=== PATIENT | female | born 1950 | race Caucasian/White ===

== ENCOUNTER 2020-05-12 19:55 | Outpatient (REF) | payer MEDICARE, OTHER, SELFPAY ==
[2020-05-12 20:52] LABS: Abs Immature Grans 0.01 10^3/uL (0.0-0.06); Absolute Basophil Count 0.04 10^3/uL (0.0-0.2); Absolute Eosinophil Count 0.11 10^3/uL (0.0-0.7); Absolute Lymphocyte Count 1.92 10^3/uL (1.2-3.4); Absolute Neutrophil Count 3.13 10^3/uL (1.2-6.7); Basophils % 0.7; Eosinophils % 1.9; HCT 39.8 % (36.0-46.0); HGB 13.4 g/dL (11.2-15.7); Immature Grans % 0.2; MCH 29.9 pg (27.0-33.0); MCHC 33.7 % (32.0-36.0); MCV 88.8 fL (80-95); Monocytes % 10.3; Neutrophils % 53.9; Nucleated RBC 0 %; Platelet Count 266 10^3/uL (130-400); RBC 4.48 10^6/uL (3.93-5.22); RDW 12.2 % (11.7-14.6); RDW-SD 39.8 fL; WBC 5.81 10^3/uL (4.4-10.8)
[2020-05-12 21:27] LABS: ALT 32 U/L (14-59); AST 22 U/L (15-37); Albumin 3.7 g/dL (3.4-5.0); Alkaline Phosphatase 73 U/L (46-116); Anion Gap 6.2 mmol/L (3-11); BUN 21 mg/dL (7-18); Bilirubin, Total 0.4 mg/dL (0.2-1.0); CO2 27.8 mmol/L (21.0-32.0); Calcium 8.8 mg/dL (8.5-10.1); Calculated LDL 159 mg/dL (<100); Chloride 103 mmol/L (98-107); Cholesterol 259 mg/dL (<200); Estimated GFR 54.66 (mL/min/1.73m2); Glucose 93 mg/dL (74-106); HDL Cholesterol 82 mg/dL (40-60); Potassium 4.2 mmol/L (3.5-5.1); Sodium 137 mmol/L (136-145); TSH (W/Ref FT4) 1.25 uIU/mL (0.36-3.74); Total Protein 6.8 g/dL (6.4-8.2); Triglyceride 92 mg/dL (<150)
== END 2020-05-12 20:15 ==
LOC: NCHCN 19:55
PROVIDERS: PCP Nurse Practitioner Family; Visit Provider Family Medicine
DX: R03.0 Elevated blood-pressure reading, without diagnosis of hypertension (principal)
CPT/HCPCS: 80053; 80061; 84443; 85025

== ENCOUNTER 2021-03-01 10:30 | Outpatient (REF) | payer MEDICARE, OTHER, SELFPAY ==
[2021-03-01 21:22] LABS: Abs Immature Grans 0.01 10^3/uL (0.0-0.06); Absolute Basophil Count 0.04 10^3/uL (0.0-0.2); Absolute Eosinophil Count 0.13 10^3/uL (0.0-0.7); Absolute Lymphocyte Count 1.83 10^3/uL (1.2-3.4); Absolute Monocyte Count 0.54 10^3/uL (0.1-0.8); Absolute Neutrophil Count 2.69 10^3/uL (1.2-6.7); Basophils % 0.8; Eosinophils % 2.5; HCT 41.4 % (36.0-46.0); HGB 13.7 g/dL (11.2-15.7); Immature Grans % 0.2; Lymphocytes % 34.9; MCH 30.9 pg (27.0-33.0); MCHC 33.1 % (32.0-36.0); MCV 93.5 fL (80-95); MPV 8.8 fL (8.0-11.0); Monocytes % 10.3; Neutrophils % 51.3; Nucleated RBC 0 %; Platelet Count 293 10^3/uL (130-400); RBC 4.43 10^6/uL (3.93-5.22); RDW 12.2 % (11.7-14.6); RDW-SD 42.4 fL; WBC 5.24 10^3/uL (4.4-10.8)
[2021-03-01 21:26] LABS: ESR 18 mm/hr (0-30)
[2021-03-01 22:49] LABS: Anion Gap 6.7 mmol/L (3-11); BUN 16 mg/dL (7-18); C-Reactive Protein 0.28 mg/dL (0.0-0.3); CO2 30.3 mmol/L (21.0-32.0); Chloride 102 mmol/L (98-107); Estimated GFR 54.66 (mL/min/1.73m2); Glucose 103 mg/dL (74-106); Potassium 4.1 mmol/L (3.5-5.1); Sodium 139 mmol/L (136-145); TSH (W/Ref FT4) 1.06 uIU/mL (0.36-3.74)
[2021-03-02 17:03] LABS: Rheumatoid Factor <8.6 IU/mL (<12.0)
[2021-03-03 19:32] LABS: Anaplasma phagocytophilum Negative (Negative); B. miyamotoi PCR Negative (Negative); Babesia divergens/MO-1 Negative (Negative); Babesia duncani Negative (Negative); Babesia microti Negative (Negative); Ehrlichia chaffeensis Negative (Negative); Ehrlichia ewingii/canis Negative (Negative); Ehrlichia muris eauclairensis Negative (Negative)
[2021-03-04 10:17] LABS: Cyclic Citrullinated Peptide <2.5 U/mL (<5.0)
[2021-03-05 10:56] LABS: Lyme Ab w Rflx to Lyme Confirm Negative (Negative)
[2021-03-05 13:56] LABS: ANA Interpretation Negative (Negative)
== END 2021-03-01 10:31 | disposition home or self-care (01) ==
LOC: NCHCN 10:30
PROVIDERS: PCP Nurse Practitioner Family; Visit Provider Nurse Practitioner Family
DX: M25.59 Pain in other specified joint (principal)
CPT/HCPCS: 80048; 85652; 86200; 87798; 84443; 85025; 86038; 86140; 86431; 86618

== ENCOUNTER 2022-05-21 09:18 | Outpatient (CLI) | payer MEDICARE, OTHER, SELFPAY ==
--- NOTE | 2022-05-21 09:15 | DI.RAD_ITS ---
Exam(s) XR SHOULDER LT COMPLETE 2+V EXAM: XR SHOULDER LT COMPLETE 2+V CLINICAL HISTORY: shoulder pain. TECHNIQUE: 2D digital imaging was performed of the left shoulder. Two images were obtained. AP and axillary views were obtained. COMPARISON: No exams were available for comparison FINDINGS: BONES: No acute fracture is present. No bony destructive lesion is seen. JOINTS: No dislocation present. There are mild degenerative changes seen at the acromioclavicular román nt. SOFT TISSUE: Normal. IMPRESSION: Mild DJD of the AC joint. DATA REPOSITORY: RADIATION DOSE DELIVERED:
== END 2022-05-21 09:19 | disposition home or self-care (01) ==
LOC: DIORS 09:19
PROVIDERS: PCP Family Medicine; Referring Provider Family Medicine; Visit Provider Student in an Organized Health Care Education/Training Program
DX: M75.102 Unspecified rotator cuff tear or rupture of left shoulder, not specified as traumatic (principal)
CPT/HCPCS: 99203; 73030

== ENCOUNTER 2022-08-30 01:12 | Outpatient (CLI) | payer MEDICARE, OTHER, SELFPAY ==
--- NOTE | 2022-08-30 07:30 | DI.MRI_ITS ---
Exam(s) MR UPPER JOINT LT WO EXAM: MR UPPER JOINT LT WO CLINICAL HISTORY: L SHOULDER INJURY,LT ROTATOR CUFF TEAR,M75.102. TECHNIQUE: Multiplanar multisequence MRI was performed. COMPARISON: CR XR SHOULDER LT COMPLETE 2+V from 05/21/2022 FINDINGS: BONES: There is no fracture or contusion pattern. JOINTS: Mild degenerative changes are seen at the acromioclavicular joint. The glenohumeral joint is normal. TENDONS: Supraspinatus: There is a complete tear of the supraspinatus tendon with retraction almost to the lev el of the glenohumeral joint. Infraspinatus: Unremarkable. Subscapularis: There is tendinosis of the subscapularis tendon. [place]: Unremarkable. Biceps and [place]: Unremarkable. MUSCLES: Unremarkable. GLENOID LABRUM: Unremarkable on this noncontrast examination. SOFT TISSUES: Unremarkable. LIGAMENTS: Unremarkable. OTHER: There is fluid seen in the subacromial subdeltoid bursa. IMPRESSION: 1. Complete tear of the supraspinatus tendon with retraction to almost to the level of the acromiocla vicular joint. 2. Degenerative changes of the acromioclavicular joint. 3. Subscapularis tendinosis. 4. Fluid seen in the subacromial subdeltoid bursa. DATA REPOSITORY:
== END 2022-08-30 01:32 ==
LOC: DI 01:13
PROVIDERS: PCP Family Medicine; Visit Provider Student in an Organized Health Care Education/Training Program
DX: M25.512 Pain in left shoulder (principal); M75.102 Unspecified rotator cuff tear or rupture of left shoulder, not specified as traumatic; M75.82 Other shoulder lesions, left shoulder; M25.412 Effusion, left shoulder
CPT/HCPCS: 73221

== ENCOUNTER → 2022-09-04 13:29 | Outpatient (BNVA) | payer MEDICARE, OTHER, SELFPAY | PROVIDERS: PCP Family Medicine; Referring Provider Family Medicine; Visit Provider Student in an Organized Health Care Education/Training Program | DX: M75.102 Unspecified rotator cuff tear or rupture of left shoulder, not specified as traumatic (principal) | CPT/HCPCS: 99214 ==

== ENCOUNTER 2022-09-26 06:17 | Day surgery (SDC) | payer MEDICARE, OTHER, SELFPAY ==
--- NOTE | 2022-09-25 16:11 | ANES.PREOP_ITS ---
General Info Date of Service Date Performed: 09/26/22 Height: 5 ft 6 in Weight: 61.235 kg Body Mass Index (BMI): 21.7 Surgical Procedure: Operation Date: 09/26/22 07:40 Proposed Procedure Side Surgeon p Shoulder Rotator Cuff Arthroscopic w/Extensive Debridement, Biceps Tenodesis, Subacromial Decompression Left Silvio Chairez MD Meds Allergies and Home Medications Allergies Allergy/AdvReac Type Severity Reaction Status Date / Time hydrocodone bitartrate AdvReac Intermediate N/V, MAKE Unverified 09/26/22 06:30 [From Vicodin] ME CRAZY oxycodone HCl [From Percocet] AdvReac Intermediate N//V, Unverified 09/26/22 06:30 MAKE ME CRAZY NARCOTICS AdvReac Intermediate MAKE ME Uncoded 09/26/22 06:30 CRAZY AND N/V Home Medication Medication Instructions Recorded calcium carb,citrat 500 1 tab PO DAILY 10/24/14 mg-magnesium #12 250 mg-vit D3 200 unit tablet (Calcium Magnesium + D) omega-3 fatty acids-fish oil 684 1 cap PO DAILY 10/24/14 mg-1,200 mg capsule,delayed release (One-Per-Day [place]-3) lisinopril 20 1 tab PO DAILY 05/21/22 mg-hydrochlorothiazide 25 mg tablet [facility], [facility] Active Problems Active Problems: Problem Status Onset Code Left rotator cuff tear M75.102 Medical History Medical History HTN (hypertension) Medical History Comments:: Pt. was told after lumpectomy that she shouldnt have BP on right side, pt. denies any lympadema Surgical History Surgical History History of total knee replacement Hx of lumpectomy Tobacco Smoking/Tobacco Use Status: Never Alcohol Alcohol Intake: former Substance Use Substance use: Never Substance use type: does not use Vital Signs and Lab Results Vital Signs Most Recent Vital Signs in EMR: Temp Pulse Resp BP Pulse Ox 36.4 C L 64 16 137/86 97 09/26/22 06:41 09/26/22 06:41 09/26/22 06:41 09/26/22 06:41 09/26/22 06:41 Lab Results Blood Type / Crossmatch: No Data to Display Complete Blood Count: No Data to Display Complete Metabolic Panel: No Data to Display Liver Function Panel: No Data to Display Coagulation Panel: No Data to Display Cardiac Panel: No Data to Display Arterial Blood Gas: No Data to Display Venous Blood Gas: No Data to Display Pancreas Panel: No Data to Display Thyroid Panel: No Data to Display Infectious Disease: No Data to Display Blood Cultures: No Data to Display Toxicology Panel: No Data to Display Anesthesia Assessment and Plan Anesthesia History Personal History: No History of Anesthesia Complications Family History: No Family History of Anesthesia Complications Exercise Tolerance Exercise Tolerance: Metabolic Equivalents>4 Cardiac & Pulmonary Exam Cardiac Exam: Normal S1/S2 Heart Sounds Pulmonary Exam: Clear Bilateral Breath Sounds Implantable Cardiac Device Does patient have a Pacemaker or an ICD?: No Airway Exam Known Difficult Airway: No Mallampati Class: 2 Mouth Opening: Normal (> 3cm) Thyromental Distance: Greater than 3 cm Neck Range of Motion: Full ROM Neck Circumference: Normal Teeth Condition: Normal Dentition ASA Classification ASA Score: ASA 2 Emergency Case?: No NPO Status NPO Status: NPO Clears >2 hours, Solids >8 hours Anesthesia Plan Resuscitation Status: Full Code Anesthesia Technique: General Anesthesia Airway Planned: Endotracheal Tube Pain Management: Surgeon and patient request nerve block Monitors Used: Standard Monitors Preoperative Comments:: 72 yo female with rotator cuff tear for shoulder scope. Sig PMHx: HTN (lisinopril/HCTZ - none today), never smoker, former EtOH.
[2022-09-26] VITALS (11 sets, daily range): BP systolic 107–145; BP diastolic 61–86; PULSE 58–64; RESP 14–18; TEMP 36.3–37; O2SAT 95–97; BMI 21.7
[2022-09-26] MEDS: Lactated Ringers 1,000 ML 30 ML IV (07:03)
--- NOTE | 2022-09-26 07:12 | W.ANESNERVE ---
Nerve Block Single Injection Procedure Date and Time Date Performed: 09/26/22 Procedure Start: 07:18 Location Where Procedure Performed Procedure Location: Day Surgery Unit Reason Performed: Postoperative Analgesia Requesting Provider: Silvio Chairez Timeout Performed Timeout Performed: Yes Monitoring Used ECG, Blood Pressure and SpO2 Sterility Sterility: Hand Hygiene, Surgical Cap, Surgical Mask, Sterile Gloves and Chlorhexidine Sedation Given During Procedure Sedation Given (Indicate Dose Given): Versed IV (0.5 mg + 0.5 mg) Dose:: 1 mg Patient Mental Status Patient Mental Status: Sedate with meaningful communication Nerve Block 1st Nerve Block: Laterality: Left Block Type: Interscalene Ultrasound Image Saved?: Yes Needle / Catheter Used: 100mm SonoPlex II Local Anesthetic Bolus (Indicate Dose Given): Lidocaine used for local infiltration of skin, Injected in 3-5ml increments after negative blood aspiration, Bupivacaine 0.5% Dose:: 12 mL and Exparel Dose:: 7 mL Additives (Indicate Dose Given): None Ultrasound: Sterile probe cover and gel used Nerve Stimulator: Supplement to Ultrasound use and No twitch or parasthesia noted < 0.5 mA Paresthesia: None Procedure Tolerated: No Complications Procedure Outcome: Successful Performed By: Aníbal Alegria
--- NOTE | 2022-09-26 07:17 | W.PM.OP ---
Date of service: 09/26/22 Time of Service: 07:30 Operative Note Operative Note DATE OF PROCEDURE: 09/26/22 PRE-OP DIAGNOSIS: Left: 1. Rotator cuff tear 2. SLAP tear 3. Bursitis POST-OP DIAGNOSIS: same PROCEDURE: Left: 1. Rotator cuff repair, CPT# 87681. This involved repair of the supraspinatus using anchors and sutures to reattach the rotator cuff back to the footprint of the greater tuberosity. 2. Arthroscopic biceps tenodesis, CPT# 49563. This involved arthroscopically suturing and reattaching the long head of the biceps tendon to the proximal humerus at the superior margin of the bicipital groove with a screw at the correct tension. 3. Extensive debridement, CPT# 53991. This involved using arthroscopic hand instruments, power instruments, and radiofrequency instruments to release the long head of the biceps tendon and debride areas of labral tearing, SLAP tearing, partial articular infraspinatus tearing, rotator interval synovitis, and chondromalacia about the humeral head working within the glenohumeral joint anteriorly, superiorly and posteriorly. 4. Subacromial decompression with partial acromioplasty, CPT# 88665. This involved using arthroscopic power instruments and a radiofrequency wand to complete a bursectomy and smooth the undersurface of the acromion. The nutrition services assistant was medically required in order to help assist in techniques above, which require positioning the arm, holding the arthroscope, and manipulating multiple instruments and sutures at the same time. This cannot be done without the help of an experienced nutrition services assistant. SURGEON: Silvio Chairez BEATER ENGINEER HELPER: Gisselle Hernandes ANESTHESIA TYPE: General LMA/ETT and Primary Nerve Block Refer to Anesthesia Record ESTIMATED BLOOD LOSS: 10 PATHOLOGY: none sent COMPLICATIONS: None Patient was transported to: PACU Patient's condition: stable Implants: Arthrex: 4.75mm SwiveLocks x 2; 5.5mm SwiveLocks x 2 Indications: The patient was diagnosed with the above conditions and appropriately indicated for surgical intervention. Please see complete medical record for details. Findings: Exam under anesthesia: Full range of motion, no instability Glenohumeral joint: Moderate generalized humeral head chondromalacia and moderate central glenoid chondromalacia. Largely intact subscapularis. Obvious disruption biceps anchor SLAP tear with labral tear continued anteriorly involving the anterior labrum to about the equator. Unstable biceps anchor. Intact articular biceps tendon. Largely intact subscapularis. Mild articular undersurface infraspinatus tearing with minimal footprint involvement. Obvious full-thickness supraspinatus defect. Subacromial space: Significant bursitis. Small soft tissue remnant greater tuberosity laterally with otherwise completely exposed supraspinatus greater tuberosity footprint. Largely intact infraspinatus dorsally. Large U-shaped supraspinatus tear with significant central tendon retraction and defect. Significant central and posterior tendon delamination, fraying, and thickening. Thin anterior tendon remnant. Exposed upper margin bicipital grooves with the tear involving the supraspinatus anteriorly into the transverse humeral ligament across the biceps tendon and stopping without involving the subscapularis. Procedure Description: In the operating room, general anesthesia was induced. Bilateral shoulders were examined. The patient was positioned in the beachchair position. All bony prominences were well-padded. Preoperative antibiotics were administered. The shoulder was prepped and draped in the usual sterile fashion. The correct patient, procedure, and side of the procedure were all verified prior to incision. Starting through the posterior portal a standard complete diagnostic arthroscopy was performed of the glenohumeral joint including inspection of the long head of the biceps, anterior and superior labrum, subscapularis tendon, supraspinatus and infraspinatus tendons, and axillary recess. The glenoid and humeral head cartilage as well as the posterior labrum were inspected from an anterior viewing portal. Significant findings and interventions noted above. A superior anterolateral portal was established and working through the full-thickness rotator cuff void, the glenohumeral joint was debrided and rotator cuff tendon provisionally assessed and greater tuberosity provisionally prepared for healing. An all-arthroscopic suprapectoral biceps tenodesis was performed using a Loop N Tack method with a SutureTape FiberLink cinched around and through the tendon. The biceps was tenotomized from the labrum and drawn at the superior anterolateral portal for later repair with the rotator cuff incorporating the transverse humeral ligament to the superior aspect of the bicipital groove. Starting through the posterior portal, the arthroscope was directed into the subacromial space. A lateral 50 yard line lateral portal was created. A combination of power instruments and a radiofrequency ablator were used to debride bursitis anteriorly, posteriorly, and laterally as well as expose and smooth bone spurring on the undersurface of the acromion. The coracoacromial ligament was degenerative and not additionally released. The bursectomy was completed viewing laterally and working from posteriorly and the rotator cuff was thoroughly inspected with findings noted above. The supraspinatus tear was thoroughly prepared taking care to evaluate the posterior and central delaminated layers, removed fraying nonviable or nonstructural tissue, and incorporating the layers together with arm position to optimize potential repair. Posteriorly thickened delaminated tendon had moderate excursion and reduction over the greater tuberosity. Centrally there was a large tissue void limiting tendon available for bone tendon repair. Anteriorly the tendon was quite thin, but the transverse humeral ligament and anteriormost part of the supraspinatus could be reapproximated over the reduced biceps tendon and the superior aspect of the bicipital groove. The tendon was thoroughly mobilized to minimize tension needed for repair. The greater tuberosity was thoroughly prepared to optimize bone and tendon healing taking care to slightly medialize the central footprint to allow for better bone tendon interface. An anterior medial row anchor was pre-? punched with the undersized punch, there was extremely soft bone, and a 4.75 mm SwiveLock anchor loaded with fiber tapes was placed here also containing the biceps tenodesis repair suture with tension of the biceps keeping the biceps reduced at the superior aspect of the bicipital groove and the tail laying over the anterior supersize greater tuberosity footprint for additional tendon augmentation. A posterior medial row anchor was placed with FiberTape similarly also showing extremely soft bone. Tapes coming out of both suture anchors were thoroughly tested and the suture anchors demonstrated reasonable fixation without any motion or loosening. The self retrieving suture passer was used to shuttle the anterior FiberTape's through the anterior aspect of the U-shaped tear supraspinatus. The initial pass incorporated too much tendon, which was unable to be reduced over the greater tuberosity without undue tension and was replaced incorporating less tendon to increase chance of repair and reduce chance of stiffness. The posterior FiberTape's were shuttled through the thickened delaminated layers of the posterior aspect of the U-shaped tear, carefully incorporating both layers, using the 90 degree lasso. A suture tape FiberLink was placed centrally in the tear in cinch mode incorporating the most retracted deficient central part of the tear. An anterior and posterior medial row tape with this link were secured to an anterior lateral row anchor, undersized punch still showed extremely soft bone so a 5.5 mm suture anchor was used, nicely draping the anterior supraspinatus and transverse humeral ligament over the biceps tendon and just achieving central supraspinatus to prepared bone reapproximation without undue tension. The tail of the biceps tendon covered the central most supraspinatus defect again for additional tendon augmentation. An additional FiberLink central was placed most posteriorly incorporating the margin of the supraspinatus and infraspinatus and the remaining tapes brought out laterally and secured to an additional 5.5 mm suture anchor. There was reasonably good posterior supraspinatus tissue quality and repair over the greater tuberosity. The anterior repair was thin but augmented with the biceps. The central repair was stable to bone and did have just enough tendon to the prepared medialized central footprint. The repair was stable through probing and range of motion. Given the advanced age, soft bone, and limited tendon available for repair, will proceed with a conservative rehab protocol. The shoulder was drained of arthroscopic fluid. All portal sites were copiously irrigated. These incisions were closed using 3-0 Monocryl in a buried fashion and then covered with Mastisol, Steri-Strips, Xeroform, dry gauze, and ABDs. The dressings were covered and secured with Medipore tape. The operative extremity was placed into a sling for immobilization. The patient awoke from anesthesia without complication and was transferred to the recovery room in a stable condition.
--- NOTE | 2022-09-26 07:18 | W.PM.DSUDISC ---
Date of service: 09/26/22 Time of Service: 13:00 Discharge Plan Disposition Patient Disposition: Home Discharge Details Attending Provider: Silvio Chairez Primary Care Provider: Christina Avila Home Meds and New Rx's Prescriptions: New naproxen 250 mg tablet 250 - 500 mg PO BID PRNQty: 40 0RF Rx Instructions: take with a meal aspirin 81 mg tablet,delayed release (DR/EC) 81 mg PO DAILY 7 Days Qty: 7 0RF tramadol 50 mg tablet 50 mg PO Q8H PRN (Reason: severe pain) Qty: 9 0RF Continued lisinopril-hydrochlorothiazide 20-25 mg tablet 1 tab PO DAILY One-Per-Day [place]-3 1 EACH capsule,delayed release(DR/EC) 1 cap PO DAILY Calcium Magnesium + D 1 EACH tablet 1 tab PO DAILY Discharge Instructions Additional Instructions: Surgery: Left shoulder arthroscopy with rotator cuff repair (large U-supraspinatus), biceps tenodesis, extensive debridement, and subacromial decompression. Activity: For 6 weeks, you should keep your arm at your side in a neutral position at all times except for physical therapy. Do not try to lift or raise your arm using your own muscles. You should use the sling whenever you are out of the house. You may have to adjust the abduction pillow or remove it for comfort. At home it is best to remove the sling and rest the arm on a pillow at your side or support the operative side with your other hand. You may allow the arm to dangle at your side. A physical therapy prescription will be sent electronically to begin in about 3 weeks. CONSERVATIVE protocol. Prescriptions: Aspirin 81 mg take 1 daily to prevent a blood clot for 7 days Naproxen 250 mg take 1-2 every 12 hours with a meal as needed for moderate pain Oxycodone 5 mg take 1-2 every 4-6 hours as needed for severe pain You may use [id number] Tylenol (acetaminophen) as needed for mild pain. These pain medications may be taken all at once or in different combinations as needed. Also, recommend Colace (docusate) as a stool softener as surgery and pain medicine cause constipation. You may try [id number] diphenhydramine (Benadryl) 25-50 mg nightly as a sleep aid Dressings: Remove shoulder bandage after 3 days. Leave the sticky Steri-Strips in place until they fall off or remove them after you shower. Cover the incisions with Band-Aids or leave them open to air. You may shower after 5 days. Follow-up: 10-[address] Chairez You may take off the leg compression stockings this evening at home. You may also leave them on a few days longer if you have a history of leg swelling or edema. Let us know right away if you develop any redness, drainage, fevers, chest pain, or trouble breathing. Do not drink alcohol or drive for at least 24 hours after anesthesia. Please call the office during business hours with any questions or concerns. Discharge Orders Discharge Orders: Discharge Order (Routine); Ordered 09/26/22 Ordered By: Silvio Chairez DS: Diagnosis Discharge Diagnosis (1) Traumatic tear of left rotator cuff: Status: Acute
[2022-09-26] MEDS: ceFAZolin 2 GM/50 ML BAG IVPB (07:42)
[2022-09-26] MEDS: EPINEPHrine 30 MG/30 ML VIAL (08:59)
--- NOTE | 2022-09-26 10:36 | W.ANESPOSTOP ---
Postoperative Evaluation Date, Time and Location Date Performed: 09/26/22 Time Performed: 10:36 Patient Location: Day Surgery Unit Vital Signs Most Recent Imported Vital Signs: Most Recent Vital Signs Temp Pulse Resp BP Pulse Ox 36.6 C 61 15 128/72 96 09/26/22 10:22 09/26/22 10:22 09/26/22 10:22 09/26/22 10:22 09/26/22 10:22 Pain Score Most Recent Pain Score: Most Recent Pain Score Pain Level 0 09/26/22 10:22 Assessment Mental Status: Awake (Alert & Oriented to Patient Baseline) Airway and Respiratory Function: Patent airway with normal (patient baseline) respiratory exam Cardiovascular Function: Hemodynamically Stable Hydration Status: Adequately Hydrated Nausea & Vomiting: No Nausea or Vomiting Pain: Pt. Denies Any Pain Peripheral Nerve Block: Regional nerve block not resolved at time of post operative discharge
--- NOTE | 2022-09-29 17:38 | PDOC.ANES ---
Date of service: 09/29/22 Time of Service: 17:38 Anesthesia Note Report Anesthesia Note: Call from Nursing Fire Prevention Engineer, Lisa. She had received a call from Amber re: continued numbness in first three fingers and up the front of her left (operative) arm. I reviewed her chart prior to calling her back. Amber verbalized that she can move all fingers and they are warm to touch and pink in color. Reassured the patient that some residual numbness at this point following an interscalene block is not unusual. She did receive Exparel which is longer acting. Instructed her that loss of movement and loss of warmth would be more concerning. informed patient that i would have Aníbal Alegria CRNA follow up with her tomorrow by phone.
--- NOTE | 2022-10-02 10:46 | PDOC.ANES ---
Date of service: 10/02/22 Time of Service: 10:47 Anesthesia Note Report Anesthesia Note: A phone call was placed to Amber to discuss her residual numbness, unfortunately I was not able to make contact with her. A message was left and she was encouraged to call. While I was out of the office she did call back and left a message states that her numbness has continued to subside and that it is basically back to normal and there was no need to call her back as she was happy.
== END 2022-09-26 12:20 | disposition home or self-care (01) ==
PROVIDERS: PCP Family Medicine; Visit Provider Student in an Organized Health Care Education/Training Program
PROC: (CPT 29827; principal; 2022-09-26 07:30)
DX: S46.012A Strain of muscle(s) and tendon(s) of the rotator cuff of left shoulder, initial encounter (principal); S43.432A Superior glenoid labrum lesion of left shoulder, initial encounter; M75.52 Bursitis of left shoulder; X58.XXXA Exposure to other specified factors, initial encounter
CPT/HCPCS: 29827; 29828; 29826; 29823; 76942; C1781; J0131; J0690; J1100; J1885; J2250; J2405

== ENCOUNTER → 2022-10-08 13:39 | Outpatient (BNVA) | payer MEDICARE, OTHER, SELFPAY | PROVIDERS: PCP Family Medicine; Visit Provider Student in an Organized Health Care Education/Training Program | DX: Z47.89 Encounter for other orthopedic aftercare (principal); M75.102 Unspecified rotator cuff tear or rupture of left shoulder, not specified as traumatic ==

== ENCOUNTER 2022-10-14 09:11 | Outpatient (REF) | payer MEDICARE, OTHER, SELFPAY ==
[2022-10-14 15:32] LABS: ALT 32 U/L (14-59); AST 18 U/L (15-37); Albumin 3.6 g/dL (3.4-5.0); Alkaline Phosphatase 81 U/L (46-116); Anion Gap 6.3 mmol/L (3-11); BUN 27 mg/dL (7-18); Bilirubin, Total 0.5 mg/dL (0.2-1.0); CO2 30.7 mmol/L (21.0-32.0); Calcium 9.2 mg/dL (8.5-10.1); Calculated LDL 176 mg/dL (<100); Chloride 102 mmol/L (98-107); Cholesterol 254 mg/dL (<200); Estimated GFR 59.49 (mL/min/1.73m2); Glucose 97 mg/dL (74-106); HDL Cholesterol 70 mg/dL (40-60); Potassium 4.1 mmol/L (3.5-5.1); Sodium 139 mmol/L (136-145); Total Protein 6.8 g/dL (6.4-8.2); Triglyceride 40 mg/dL (<150)
[2022-10-14 16:32] LABS: Vitamin D 25 Total 43.9 ng/mL (30-100)
== END 2022-10-14 09:12 | disposition home or self-care (01) ==
LOC: NCHCN 09:11
PROVIDERS: PCP Family Medicine; Visit Provider Family Medicine
DX: I10 Essential (primary) hypertension (principal); M85.88 Other specified disorders of bone density and structure, other site; M25.59 Pain in other specified joint
CPT/HCPCS: 80053; 80061; 82306

== ENCOUNTER → 2022-11-19 09:42 | Outpatient (BNVA) | payer MEDICARE, OTHER, SELFPAY | PROVIDERS: PCP Family Medicine; Referring Provider Family Medicine; Visit Provider Student in an Organized Health Care Education/Training Program | DX: S46.012D Strain of muscle(s) and tendon(s) of the rotator cuff of left shoulder, subsequent encounter (principal); X58.XXXD Exposure to other specified factors, subsequent encounter ==

== ENCOUNTER → 2023-01-22 10:57 | Outpatient (BNVA) | payer MEDICARE, OTHER, SELFPAY | PROVIDERS: PCP Family Medicine; Referring Provider Family Medicine; Visit Provider Student in an Organized Health Care Education/Training Program | DX: Z47.89 Encounter for other orthopedic aftercare (principal); M75.102 Unspecified rotator cuff tear or rupture of left shoulder, not specified as traumatic | CPT/HCPCS: 99213 ==

== ENCOUNTER 2023-03-27 12:14 | Outpatient (CLI) | payer MEDICARE, OTHER, SELFPAY ==
--- NOTE | 2023-03-27 11:54 | DI.RAD_ITS ---
Exam(s) XR HIP PELVIS ADULT BL EXAM: XR HIP PELVIS ADULT BL CLINICAL HISTORY: bilateral hip pain. TECHNIQUE: 2D digital imaging was performed of the pelvis and bilateral hips. Three images were obt ained. AP pelvis and lateral views of both hips were obtained. COMPARISON: No exams were available for comparison FINDINGS: BONES: No acute fracture is present. No bony destructive lesion is seen. JOINTS: No dislocation present. The joint spaces are well maintained. The sacroiliac joints are unre markable as is the symphysis pubis. SOFT TISSUE: Normal. IMPRESSION: Unrmarkable radiographs of bilat hips. DATA REPOSITORY: RADIATION DOSE DELIVERED:
== END 2023-03-27 12:15 | disposition home or self-care (01) ==
LOC: DIORS 12:14
PROVIDERS: PCP Family Medicine; Referring Provider Family Medicine; Visit Provider Student in an Organized Health Care Education/Training Program
DX: M25.559 Pain in unspecified hip (principal); M76.02 Gluteal tendinitis, left hip; M76.01 Gluteal tendinitis, right hip; M24.151 Other articular cartilage disorders, right hip
CPT/HCPCS: 73521; 99213

== ENCOUNTER → 2023-05-14 10:59 | Outpatient (BNVA) | payer MEDICARE, OTHER, SELFPAY | PROVIDERS: PCP Family Medicine; Referring Provider Family Medicine; Visit Provider Student in an Organized Health Care Education/Training Program | DX: S46.012D Strain of muscle(s) and tendon(s) of the rotator cuff of left shoulder, subsequent encounter (principal); X58.XXXD Exposure to other specified factors, subsequent encounter | CPT/HCPCS: 99213 ==

== ENCOUNTER → 2024-07-07 11:32 | Outpatient (BNVA) | payer MEDICARE, OTHER, SELFPAY | PROVIDERS: PCP Family Medicine; Referring Provider Family Medicine; Visit Provider Student in an Organized Health Care Education/Training Program | DX: C50.911 Malignant neoplasm of unspecified site of right female breast (principal) | CPT/HCPCS: 99213 ==

== ENCOUNTER 2024-09-21 11:04 | Outpatient (REF) | payer MEDICARE, OTHER, SELFPAY ==
[2024-09-21 15:26] LABS: ALT 28 U/L (14-59); AST 18 U/L (15-37); Albumin 3.6 g/dL (3.4-5.0); Alkaline Phosphatase 83 U/L (46-116); Anion Gap 5.4 mmol/L (3-11); BUN 21 mg/dL (7-18); Bilirubin, Total 0.6 mg/dL (0.2-1.0); CO2 31.6 mmol/L (21.0-32.0); Calcium 9.3 mg/dL (8.5-10.1); Calculated LDL 198 mg/dL (<100); Chloride 104 mmol/L (98-107); Cholesterol 282 mg/dL (<200); Estimated GFR 58.75 (mL/min/1.73m2); Glucose 88 mg/dL (74-106); HDL Cholesterol 73 mg/dL (>or=50); Potassium 4.3 mmol/L (3.5-5.1); Sodium 141 mmol/L (136-145); Total Protein 6.7 g/dL (6.4-8.2); Triglyceride 55 mg/dL (<150); Vitamin D 25 Total 41 ng/mL (30-100)
== END 2024-09-21 11:05 | disposition home or self-care (01) ==
LOC: NCHCN 11:04
PROVIDERS: PCP Family Medicine; Visit Provider Family Medicine
DX: I10 Essential (primary) hypertension (principal); M85.89 Other specified disorders of bone density and structure, multiple sites
CPT/HCPCS: 80053; 80061; 82306

== ENCOUNTER 2024-11-17 11:25 | Outpatient (CLI) | payer MEDICARE, OTHER, SELFPAY ==
--- NOTE | 2024-11-17 10:45 | DI.RAD_ITS ---
Exam(s) XR SHOULDER RT COMPLETE 2+V EXAM: XR SHOULDER RT COMPLETE 2+V CLINICAL HISTORY: RIGHT SHOULDER PAIN. TECHNIQUE: 2D digital imaging was performed of the right shoulder. Two images were obtained. Grash ey and axillary views were obtained. COMPARISON: No exams were available for comparison FINDINGS: BONES: No acute fracture is present. No bony destructive lesion is seen. JOINTS: No dislocation present. There are degenerative changes seen at the acromioclavicular joint. There is very mild inferior subluxation of the humeral head relative to the glenoid. Surgical clips are seen in the right axilla. SOFT TISSUE: Normal. IMPRESSION: Moderate degenerative changes seen at the acromioclavicular joint. Please see the above discussion f or complete details. DATA REPOSITORY: RADIATION DOSE DELIVERED:
== END 2024-11-17 11:26 | disposition home or self-care (01) ==
LOC: DIORS 11:26
PROVIDERS: PCP Family Medicine; Referring Provider Family Medicine; Visit Provider Student in an Organized Health Care Education/Training Program
DX: M25.511 Pain in right shoulder (principal); M75.101 Unspecified rotator cuff tear or rupture of right shoulder, not specified as traumatic; M67.921 Unspecified disorder of synovium and tendon, right upper arm; M19.011 Primary osteoarthritis, right shoulder
CPT/HCPCS: 99214; 99213; 73030

== ENCOUNTER 2024-12-08 02:15 | Outpatient (CLI) | payer MEDICARE, OTHER, SELFPAY ==
--- NOTE | 2024-12-08 07:30 | DI.MRI_ITS ---
Exam(s) MR UPPER JOINT RT WO EXAM: MR UPPER JOINT RT WO CLINICAL HISTORY: R SHOULDER PAIN,arthritis rt glenohumeral joint,rt rotator cuff tear,. TECHNIQUE: Multiplanar multisequence MRI was performed. COMPARISON: Plain films 12 November 2024 FINDINGS: Exam is mildly limited by motion. BONES: There is no fracture or contusion pattern. JOINTS:The acromioclavicular joint shows inferior spurring and a small amount of fluid. The glenohumeral joint shows a small effusion. TENDONS: Supraspinatus: Full-thickness tear with retraction to the level of the acromion. Infraspinatus: Mild edema and adjacent fluid but no visible focal tear. Subscapularis: Unremarkable. Teres Minor: Unremarkable. Biceps and Cl[place]: Fluid in biceps tendon sheath. MUSCLES: Mild supraspinatus muscle atrophy. GLENOID LABRUM: Degenerative changes. SOFT TISSUES: Unremarkable. BURSAE: Subacromial and subdeltoid bursae show small amount of fluid.. IMPRESSION: Full-thickness tear of the supraspinatus tendon with retraction to the level of the acromion. Respond tendinosis. Small joint effusion. Degenerative changes of the AC joint. DATA REPOSITORY:
== END 2024-12-08 02:35 ==
LOC: DI 02:15
PROVIDERS: PCP Family Medicine; Visit Provider Student in an Organized Health Care Education/Training Program
DX: M75.121 Complete rotator cuff tear or rupture of right shoulder, not specified as traumatic (principal)
CPT/HCPCS: 73221

== ENCOUNTER → 2024-12-14 09:31 | Outpatient (BNVA) | payer MEDICARE, OTHER, SELFPAY | PROVIDERS: PCP Family Medicine; Referring Provider Family Medicine; Visit Provider Student in an Organized Health Care Education/Training Program | DX: M75.101 Unspecified rotator cuff tear or rupture of right shoulder, not specified as traumatic (principal) | CPT/HCPCS: 99213 ==

== ENCOUNTER 2025-01-05 02:55 | Outpatient (CLI) | payer MEDICARE, OTHER, SELFPAY ==
--- NOTE | 2025-01-05 10:32 | DI.CT_ITS ---
Exam(s) CT UPPER EXTREMITY RT WO EXAM: CT UPPER EXTREMITY RT WO CLINICAL HISTORY: SURGICAL PLANNING, ARTHRITIS RT GLENOHUMERAL JOINT, TENDINOPATHY TECHNIQUE: Imaging Protocol: Axial computed tomography images with coronal and sagittal reformatted images were created and reviewed. CONTRAST MATERIAL: Noncontrast COMPARISON: Plain films 17 November 2024 FINDINGS: Bones: There is no evidence of fracture or dislocation. Bony alignment is satisfactory. No cellulitic or osteomyelitic changes are identified. No lytic or sclerotic lesions are identified. Joints: Mild spurring at the AC joint. The glenohumeral joint space is maintained. Mild spurring at the glenoid and margin of the humeral head. Soft Tissues: Surgical clips in the axilla. IMPRESSION: Mild degenerative changes of the AC joint and glenohumeral joint. RADIATION DOSE DELIVERED: 97.54mGy.cm Total DLP DATA REPOSITORY: All CT scans at this facility are submitted to the National Radiology Data Registry (NRDR) Dose Index Registry (DIR) with the [employer] ([employer]). RADIATION OPTIMIZATION: All CT scans at this facility use at least one of these dose optimization techniques: automated exposure control; mA and/or kV adjustment per patient size (includes targeted exams where dose is matched to clinical indication); or iterative reconstruction.
== END 2025-01-05 03:15 ==
LOC: DI 02:55
PROVIDERS: PCP Family Medicine; Visit Provider Student in an Organized Health Care Education/Training Program
DX: M19.011 Primary osteoarthritis, right shoulder (principal); M67.921 Unspecified disorder of synovium and tendon, right upper arm
CPT/HCPCS: 73200

== ENCOUNTER → 2025-01-18 14:11 | Outpatient (BNVA) | payer MEDICARE, OTHER, SELFPAY | PROVIDERS: PCP Family Medicine; Referring Provider Family Medicine; Visit Provider Student in an Organized Health Care Education/Training Program | DX: M75.101 Unspecified rotator cuff tear or rupture of right shoulder, not specified as traumatic (principal); M75.21 Bicipital tendinitis, right shoulder | CPT/HCPCS: 99214; 99213 ==

== ENCOUNTER → 2025-05-25 10:07 | Outpatient (BNVA) | payer MEDICARE, OTHER, SELFPAY | PROVIDERS: PCP Family Medicine; Referring Provider Family Medicine; Visit Provider Student in an Organized Health Care Education/Training Program | DX: M75.101 Unspecified rotator cuff tear or rupture of right shoulder, not specified as traumatic (principal); M75.21 Bicipital tendinitis, right shoulder | CPT/HCPCS: 99214 ==